=== PATIENT | female | born 1980 | race Caucasian/White ===

== ENCOUNTER 2016-12-27 18:00 | Emergency (ER) | payer OTHER ==
[~2016-12-27] VITALS: Ht 167.6 cm; Wt 93.6 kg
[~2016-12-27 18:00] MED LIST: EXCEDRIN1 TABLET PO; Motrin PO; NATALCARE RX1 TABLE1 PO; PRENATAL1 EACH PO
[2016-12-27 20:59] LABS: HEMATOCRIT 37.3 % (36.0-46.0); MCH 30.3 PG (29.0-34.0); MCHC 33.2 G/DL (30.0-36.0); MCV 91.2 FL (83-99); MEAN PLAT.VOLUME 10.1 uM^3 (9.5-12.4); PLATELET COUNT 256 K/uL (156-360); RBC DIS.WIDTH-CV 12.6 % (11.8-14.6); RBC DIS.WIDTH-SD 41.5 % (39-53); RED BLOOD COUNT 4.09 M/uL (3.80-5.20); WHITE BLOOD COUNT 12.8 K/uL (4.1-10.2)
[2016-12-27 21:09] LABS: CHLORIDE 110 mEq/L (99-109); POTASSIUM 3.7 mEq/L (3.7-5.4); SODIUM 138 mEq/L (136-147)
[2016-12-27 21:11] LABS: GLUCOSE 98 mg/dL (70-99)
[2016-12-27 21:12] LABS: ANION GAP 6 MEQ/L (2-14)
[2016-12-27 21:13] LABS: TOTAL BILIRUBIN 0.3 mg/dL (0.0-1.0)
[2016-12-27 21:14] LABS: ALKALINE PHOSPHATASE 65 IU/L (3-129)
[2016-12-27 21:15] LABS: GFR ESTIMATE (CALCULATED) > 59 mL/min/
[2016-12-27 21:16] LABS: UREA NITROGEN (BUN) 15 mg/dL (9-23)
[2016-12-27 21:23] LABS: ADD MIUA? YES; BILIRUBIN NEGATIVE; BLOOD MODERATE; COLOR YELLOW ((YELLOW)); GLUCOSE (STRIP) NEGATIVE; KETONES NEGATIVE; LEUKOCYTES NEGATIVE; NITRITE NEGATIVE; PROTEIN (STRIP) NEGATIVE; UROBILINOGEN 0.2 MG/DL (0.2-1.0)
[2016-12-27 21:24] LABS: QUANTITATIVE HCG < 4.0 MIU/ML
[2016-12-27 21:27] LABS: BACTERIA RARE /HPF; EPITHELIAL CELLS 1+ /HPF; HYALINE CASTS 0-5 /LPF; MUCUS TRACE /LPF; RED BLOOD CELLS 0-5 /HPF (0-5); UCUL ADDED? NO; WHITE BLOOD CELLS 0-5 /HPF (0-5)
[2016-12-27] MEDS ORDERED: PERCOCET 5/31 TABLET PO (22:34)
[2016-12-27] MEDS ORDERED: SKELAXIN800 MG PO (22:34)
[2016-12-27 22:47] VITALS: BP 170/85
== END 2016-12-27 22:47 | disposition home or self-care (01) ==
LOC: EME 18:00
PROVIDERS: Physician Assistant
DX: M54.5 Low back pain (principal); R10.31 Right lower quadrant pain
CPT/HCPCS: 74176; 80053; 81003; 84702; 85027; 99281; 99284; J1885